=== PATIENT | male | born 1940 | race Caucasian/White ===

== ENCOUNTER → 2017-01-04 | Outpatient (CLI) | payer MEDICARE, OTHER | LOC: RAD 15:21 | DX: M25.561 Pain in right knee (principal); M85.80 Other specified disorders of bone density and structure, unspecified site; M17.11 Unilateral primary osteoarthritis, right knee | CPT/HCPCS: 73564 ==

== ENCOUNTER → 2017-03-25 | Outpatient (CLI) | payer MEDICARE, OTHER | LOC: HEART 5 11:01 | DX: I35.1 Nonrheumatic aortic (valve) insufficiency (principal); I34.0 Nonrheumatic mitral (valve) insufficiency; R01.1 Cardiac murmur, unspecified; I07.1 Rheumatic tricuspid insufficiency | CPT/HCPCS: 93306 ==

== ENCOUNTER → 2022-05-04 | Outpatient (CLI) | payer OTHER, MEDICARE ==
[~2022-05-04] MED LIST: ACID CONTROL150 MG PO; ALLERGY RELIEF25 M1 PO; AMLODIPINE BESY10 MG PO; COZAAR 50MG TAB50 MG PO; CRESTOR10 MG PO; DAILY VALUE1 EACH PO; LEVOTHYROXINE50 MCG PO; NEURONTIN 100100 MG PO; PRESERVISION A1 EACH PO; PROTONIX40 MG PO; VITAMIN B-12250 MCG PO; VITAMIN B-1250 MC1 PO
== END ==
LOC: HEART 5 15:30
DX: R00.2 Palpitations (principal)